=== PATIENT | male | born 1995 | race African-American/Black ===

== ENCOUNTER 2021-10-02 17:59 | Emergency (ER) | payer OTHER ==
[~2021-10-02] VITALS: Ht 167.6 cm; Wt 63.6 kg
[2021-10-02 19:30] VITALS: BP 148/84
[2021-10-02] MEDS ORDERED: PERTUSS(ACELL),DIPH,TET VAC/PF 0.5 ML SYRINGE IM. ONE (19:45)
[2021-10-02] MEDS ORDERED: CeFAZolin 2 GM/DEXTROSE 50 ML IV ONE (19:45)
== END 2021-10-02 20:40 | disposition left against medical advice (07) ==
LOC: EMS 18:05
DX: S05.32XA Ocular laceration without prolapse or loss of intraocular tissue, left eye, initial encounter (principal); Y04.0XXA Assault by unarmed brawl or fight, initial encounter; Y93.89 Activity, other specified; Y92.89 Other specified places as the place of occurrence of the external cause; Y99.8 Other external cause status
CPT/HCPCS: 70450; 70486; 99284; J0690